=== PATIENT | female | born 1960 | race Two or more races ===

== ENCOUNTER 2016-08-17 08:51 | Emergency (ER) | payer BC ==
--- NOTE | ~2016-08-17 | CR150 ---
[facility] A Service of [facility] & [facility] RADIOLOGY TEXT RESULTS PATIENT: HAZEL AGUILAR LOCATION: [facility] : 56 UNIT #: [id number] AGE: [address]: Gonzalo Pearl MD SEX: F ORDER DR: [id number] [facility] [address] [place], [place] [address] [id number] E MR#: [id number] Acc #: [id number] NAME: HAZEL AGUILAR : 1960 SEX: F STUDY DATE/TIME: 08/17/2016 8:55 UNIT: [facility] ROOM: STUDY DESCRIPTION: CR Hip Min 2 Views Lt Attending Physician: Gonzalo Pearl M.D. Ordering Physician: Gonzalo Pearl M.D. Primary Care Physician: Primary Care Physician No MEDICAL IMAGING REPORT This report is preliminary unless electronic signature is present EXAM Left hip 08/17/2016 HISTORY 56-year-old female with left hip pain status post fall today. COMPARISON: None. FINDINGS 2 views of the left hip demonstrate no acute fracture or dislocation. Bony pelvis intact. Sacrum and SI joints intact. Soft tissues are unremarkable. IMPRESSION Unremarkable left hip. Dictated by... Jeffrey Godfrey M.D. THIS IS AN ELECTRONICALLY VERIFIED REPORT Jeffrey Godfrey M.D. at 08/19/2016 8:28 AM VERONIKA/[email or web address] TD: 08/18/2016 09:00 JOB #: [id number] MEDICAL IMAGING REPORT Page 1 of 1 COPY
--- NOTE | ~2016-08-17 | CR210 ---
[facility] A Service of [facility] & [facility] RADIOLOGY TEXT RESULTS PATIENT: HAZEL AGUILAR LOCATION: [facility] : 56 UNIT #: [id number] AGE: [address]: Gonzalo Pearl MD SEX: F ORDER DR: [id number] [facility] [address] [place], [place] [address] [id number] E MR#: [id number] Acc #: [id number] NAME: HAZEL AGUILAR : 1960 SEX: F STUDY DATE/TIME: 08/17/2016 8:54 UNIT: [facility] ROOM: STUDY DESCRIPTION: CR Ribs Uni 2 View W PA Ch Lt Attending Physician: Gonzalo Pearl M.D. Ordering Physician: [id number] Taco Pearl Primary Care Physician: Primary Care Physician No MEDICAL IMAGING REPORT This report is preliminary unless electronic signature is present EXAM PA chest with left ribs 08/01/1916 HISTORY 56-year-old female with left rib and chest pain status post fall today. COMPARISON None. FINDINGS Frontal chest and 3 views of the left ribs were performed. 4 total images. No displaced left-sided rib fractures. No other acute bony abnormalities. Lungs are clear. No pleural effusion or pneumothorax. Heart size and mediastinum are normal. Pulmonary vasculature normal. IMPRESSION 1. No displaced left-sided rib fractures. No acute bony abnormality. 2. No acute cardiopulmonary findings. Dictated by... Jeffrey Godfrey M.D. THIS IS AN ELECTRONICALLY VERIFIED REPORT Jeffrey Godfrey M.D. at 08/19/2016 8:28 AM Yvette TD: 08/18/2016 09:05 JOB #: [id number] MEDICAL IMAGING REPORT Page 1 of 1 COPY
== END 2016-08-17 10:08 | disposition home or self-care (01) ==
LOC: CED 08:51
DX: S20.219A Contusion of unspecified front wall of thorax, initial encounter (principal); W18.40XA Slipping, tripping and stumbling without falling, unspecified, initial encounter; Y92.89 Other specified places as the place of occurrence of the external cause
CPT/HCPCS: 71101; 73502; 96372; 99284; J1885